=== PATIENT | male | born 1980 | race African-American/Black ===

== ENCOUNTER 2022-05-26 13:29 | Emergency (ER) | payer OTHER ==
[2022-05-26] MEDS ORDERED: Ketorolac Tromethamine 30 MG/ML VIAL ONE (15:57)
[2022-05-26] MEDS ORDERED: Orphenadrine Citrate 60 MG/2 ML VIAL ONE (15:57)
== END 2022-05-26 16:48 | disposition home or self-care (01) ==
LOC: ERS 13:29
DX: M62.838 Other muscle spasm (principal)
CPT/HCPCS: 96372; J1885; J2360